=== PATIENT | female | born 1990 ===

== ENCOUNTER 2019-02-03 10:23 | Outpatient (CLI) | payer OTHER | END 2019-02-03 12:00 | disposition home or self-care (01) | LOC: PRENATAL 10:23 | DX: O35.3XX0 Maternal care for (suspected) damage to fetus from viral disease in mother, not applicable or unspecified (principal); O34.12 Maternal care for benign tumor of corpus uteri, second trimester; O65.5 Obstructed labor due to abnormality of maternal pelvic organs ==